=== PATIENT | male | born 1960 | race Two or more races ===

== ENCOUNTER 2017-11-03 13:20 | Emergency (ER) | payer OTHER ==
[~2017-11-03] VITALS: Ht 180.3 cm; Wt 104.3 kg
[2017-11-03 15:16] VITALS: BP 140/89
[2017-11-03] MEDS ORDERED: HYDROcodone-ACET 10/325MG TAB PO ONE (15:45)
[2017-11-03] MEDS ORDERED: KETOROLAC TROMETH 60MG/2ML VIAL IM ONE (15:45)
== END 2017-11-03 18:37 | disposition home or self-care (01) ==
LOC: ER 13:20
DX: M71.561 Other bursitis, not elsewhere classified, right knee (principal); Z86.73 Personal history of transient ischemic attack (TIA), and cerebral infarction without residual deficits
CPT/HCPCS: 73562; 93971; 96372; 99284; J1885

== ENCOUNTER 2024-01-29 00:54 | Emergency (ER) | payer OTHER ==
[~2024-01-29] VITALS: Ht 180.3 cm; Wt 100.0 kg
[2024-01-29 01:59] LABS: Basophils # (auto) 0 10 ^3/uL (0-0.2); Basophils % (auto) 0.3 % (0.0-2.0); Eosinophils # (auto) 0.1 10 ^3/uL (0-0.8); Eosinophils % (auto) 0.9 % (0.0-7.0); Hematocrit 45.9 % (41.0-53.0); Hemoglobin 14.8 g/dL (13.5-17.5); Lymphocytes # (auto) 0.8 10 ^3/uL (0.4-5.4); Lymphocytes % (auto) 12.6 % (10.0-50.0); Mean Corpuscular Hemoglobin 29.7 pg (28.0-32.0); Mean Corpuscular Hgb Conc. 32.2 g/dL (32.0-36.0); Mean Corpuscular Volume 92.5 fL (80.0-100.0); Monocytes # (auto) 0.5 10 ^3/uL (0-1.3); Monocytes % (auto) 7.5 % (0.0-12.0); Neutrophils # (auto) 5.1 10 ^3/uL (1.6-8.6); Neutrophils % (auto) 78.7 % (37.0-80.0); Red Blood Cells 4.96 10^6/uL (4.5-5.90); Red Cell Distribution Width 14.2 % (11.8-14.3); White Blood Cell 6.5 10^3/uL (4.4-10.8)
[2024-01-29 02:13] LABS: Alanine Aminotransferase 15 U/L (7-40); Alkaline Phosphatase 89 U/L (46-116); Anion Gap 6 (5-15); Blood Urea Nitrogen 17 mg/dL (9-23); Calcium 9.4 mg/dL (8.7-10.4); Carbon Dioxide 25 mmol/L (20-30); Chloride 109 mmol/L (98-107); Glucose 139 mg/dL (74-106); Potassium 4.1 mmol/L (3.5-5.1); Sodium 140 mmol/L (136-145)
[2024-01-29 02:14] LABS: Albumin 3.7 g/dL (3.2-4.8); Aspartate Aminotransferase 11 U/L (13-40); Bilirubin, Total 0.4 mg/dL (0.2-1.0); Total Protein 6.1 g/dL (5.7-8.2)
[2024-01-29 06:20] VITALS: BP 123/63; PULSE 89; RESP 17; TEMP 98.3; O2SAT 93
== END 2024-01-29 06:22 | disposition home or self-care (01) ==
LOC: EDBD 00:54 → ER 00:54
DX: R55 Syncope and collapse (principal); T46.7X5A Adverse effect of peripheral vasodilators, initial encounter; Y92.89 Other specified places as the place of occurrence of the external cause; Z86.73 Personal history of transient ischemic attack (TIA), and cerebral infarction without residual deficits
CPT/HCPCS: 36415; 70450; 80053; 84484; 85025; 93005